=== PATIENT | male | born 1950 | race Caucasian/White ===

== ENCOUNTER 2017-04-14 13:14 | Inpatient (IN) | payer OTHER, BC ==
[~2017-04-14] VITALS: Ht 180.3 cm; Wt 155.5 kg
[2017-04-14 13:34] LABS: EOSINOPHIL (%) 1.4 % (0-5); EOSINOPHIL COUNT 0.1 K/uL (0-0.3); HEMATOCRIT 38.9 % (38.0-50.0); IMMATURE GRANULOCYTE (%) 0.6 % (0.0-0.7); LYMPHOCYTE COUNT 0.6 K/uL (1.0-2.8); MCH 30.6 PG (29.0-34.0); MCHC 33.2 G/DL (30.0-36.0); MCV 92.4 FL (86-99); MEAN PLAT.VOLUME 12.8 uM^3 (9.0-12.4); MONOCYTE (%) 8.8 % (3-12); MONOCYTE COUNT 0.5 K/uL (0-0.8); NEUTROPHIL (%) 77.4 % (45-76); PLATELET COUNT 66 K/uL (156-360); RBC DIS.WIDTH-CV 13.8 % (11.8-14.6); RBC DIS.WIDTH-SD 47.1 % (39-53); RED BLOOD COUNT 4.21 M/uL (4.00-5.50); WHITE BLOOD COUNT 5.1 K/uL (4.1-10.2)
[2017-04-14 13:42] LABS: AMYLASE 17 IU/L (1-118); CHLORIDE 105 mEq/L (99-109); POTASSIUM 3.8 mEq/L (3.7-5.4); SODIUM 138 mEq/L (136-147)
[2017-04-14 13:44] LABS: GLUCOSE 111 mg/dL (70-99)
[2017-04-14 13:45] LABS: CREATININE 0.8 mg/dL (0.6-1.3); POTASSIUM 3.8 mEq/L (3.7-5.4)
[2017-04-14 13:45] LABS: ANION GAP 12 MEQ/L (2-14)
[2017-04-14 13:47] LABS: SERUM ETHYL ALCOHOL < 10 mg/dL
[2017-04-14 13:49] LABS: UREA NITROGEN (BUN) 14 mg/dL (9-23)
[2017-04-14 13:51] LABS: LIPASE 13 U/L (1.0-51.0)
[2017-04-14 13:55] LABS: GFR ESTIMATE (CALCULATED) > 59 mL/min/
[2017-04-14 15:12] LABS: ADD MIUA? NO; BILIRUBIN NEGATIVE; BLOOD NEGATIVE; COLOR YELLOW ((YELLOW)); GLUCOSE (STRIP) NEGATIVE; KETONES 5; LEUKOCYTES NEGATIVE; NITRITE NEGATIVE; PROTEIN (STRIP) NEGATIVE; SPECIFIC GRAVITY 1.034 (1.000-1.030); UCUL ADDED? NO; UROBILINOGEN 0.2 MG/DL (0.2-1.0)
[2017-04-14 15:29] LABS: AMPHETAMINE NEGATIVE (500 ng/mL); BARBITURATES NEGATIVE (200 ng/mL); BENZODIAZEPINES NEGATIVE (150 ng/mL); COCAINE NEGATIVE (150 ng/mL); INTERNAL CONTROLS VALID? YES; METHADONE NEGATIVE (200 ng/mL); METHAMPHETAMINE NEGATIVE (500 ng/mL); OPIATES (MORPHINE) NEGATIVE (100 ng/mL); OXYCODONE NEGATIVE (100 ng/mL); PHENCYCLIDINE NEGATIVE (25 ng/mL); PROPOXYPHENE NEGATIVE (300 ng/mL); THC CANNABINOIDS NEGATIVE (50 ng/mL); TRICYCLIC ANTIDEPRESSANTS NEGATIVE (300 ng/mL)
[2017-04-14] MEDS ORDERED: ADVAIR 100/501 DISK IH (20:17)
[2017-04-14] MEDS ORDERED: AMIODARONE HCL200 MG PO (20:17)
[2017-04-14] MEDS ORDERED: CHILDREN'S ASPI81 M1 PO (20:17)
[2017-04-14] MEDS ORDERED: BENAZEPRIL HCL40 MG PO (20:17)
[2017-04-14] MEDS ORDERED: LUMIGAN 0.50 DROP/22 BOTH EYES (20:17)
[2017-04-14] MEDS ORDERED: SIMVASTATIN20 MG PO (20:17)
[2017-04-14] MEDS ORDERED: CARDURA4 MG PO (20:18)
[2017-04-14] MEDS ORDERED: WELLBUTRIN SR100 MG PO (20:18)
[2017-04-14] MEDS ORDERED: SPIRONOLACT/HC1 EACH PO (20:18)
[2017-04-14] MEDS ORDERED: AMLODIPINE BESY10 MG PO (20:18)
[2017-04-14] MEDS ORDERED: LEXAPRO10 MG PO (20:18)
[2017-04-14] MEDS ORDERED: CARVEDILOL6.25 MG PO (20:18)
[2017-04-14] MEDS ORDERED: GLUCOPHAGE1000 MG PO (20:18)
[2017-04-14] MEDS ORDERED: KLOR-CON M2020 MEQ PO (20:18)
[2017-04-14] MEDS ORDERED: COMPOUNDED EYE LEFT EYE (20:20)
[2017-04-14 21:09] LABS: TOTAL BILIRUBIN 0.8 mg/dL (0.0-1.0)
[2017-04-14 21:10] LABS: ALKALINE PHOSPHATASE 36 IU/L (3-129)
[2017-04-14 21:13] LABS: DIRECT BILIRUBIN 0.3 mg/dL (0.0-0.3)
[2017-04-14 21:14] LABS: CREATINE KINASE 89 IU/L (1-294)
[2017-04-14 21:32] LABS: TROP-I INTERPRETATION NEGATIVE; TROPONIN-I < 0.01 ng/mL (0.0-0.30)
[2017-04-14 22:20] VITALS: BP 135/70
[2017-04-14 22:30] VITALS: BP 135/70
[2017-04-15 04:43] VITALS: BP 133/70
[2017-04-15 06:22] LABS: HEMATOCRIT 39.8 % (38.0-50.0); MCH 31.3 PG (29.0-34.0); MCHC 34.2 G/DL (30.0-36.0); MCV 91.5 FL (86-99); MEAN PLAT.VOLUME 12.4 uM^3 (9.0-12.4); PLATELET COUNT 99 K/uL (156-360); RBC DIS.WIDTH-CV 13.7 % (11.8-14.6); RBC DIS.WIDTH-SD 46.5 % (39-53); RED BLOOD COUNT 4.35 M/uL (4.00-5.50); WHITE BLOOD COUNT 5.9 K/uL (4.1-10.2)
[2017-04-15 06:36] LABS: POINT-OF-CARE METER ID UU14117124
[2017-04-15 06:47] LABS: ANION GAP 10 MEQ/L (2-14); CHLORIDE 101 MEQ/L (99-109); GFR ESTIMATE (CALCULATED) > 59 mL/min/; POTASSIUM 4.1 MEQ/L (3.7-5.4); SAMPLE HEMOLYSIS CHECK 0; SAMPLE ICTERIC CHECK 0; SAMPLE LIPEMIA CHECK 0; SODIUM 136 MEQ/L (136-147); UREA NITROGEN (BUN) 13 mg/dL (9-23)
[2017-04-15 06:48] LABS: GLUCOSE 219 mg/dL (70-99)
[2017-04-15 08:05] VITALS: BP 135/81
[2017-04-15 11:51] VITALS: BP 128/68
[2017-04-15 16:00] VITALS: BP 118/62
[2017-04-15 19:58] VITALS: BP 188/67
[2017-04-15 22:04] LABS: POINT-OF-CARE METER ID UU14117124
[2017-04-15 23:17] VITALS: BP 134/75
[2017-04-16 04:46] VITALS: BP 168/95
[2017-04-16 06:14] LABS: POINT-OF-CARE METER ID UU14117124
[2017-04-16 06:24] VITALS: BP 112/56
[2017-04-16] MEDS ORDERED: HYDROCHLOROTHIA25 MG PO (08:55)
== END 2017-04-16 12:35 | disposition home or self-care (01) | DRG 54 ==
LOC: TRA 13:14 → 3EAST 20:16 → EDOF 20:16 → ENRESERV 20:21 → 3EAST 21:59
PROVIDERS: Emergency Medicine; Hospitalist
PROC: 5A09357 Assistance with Respiratory Ventilation, Less than 24 Consecutive Hours, Continuous Positive Airway Pressure (ICD-10-PCS; principal; 2017-04-15)
DX: D32.0 Benign neoplasm of cerebral meninges (principal); G93.6 Cerebral edema; E11.65 Type 2 diabetes mellitus with hyperglycemia; S20.229A Contusion of unspecified back wall of thorax, initial encounter; V43.52XA Car driver injured in collision with other type car in traffic accident, initial encounter; D69.6 Thrombocytopenia, unspecified; G47.33 Obstructive sleep apnea (adult) (pediatric); E78.5 Hyperlipidemia, unspecified; H40.9 Unspecified glaucoma; I11.0 Hypertensive heart disease with heart failure; I50.9 Heart failure, unspecified; I25.10 Atherosclerotic heart disease of native coronary artery without angina pectoris; I44.1 Atrioventricular block, second degree; I48.91 Unspecified atrial fibrillation; N40.0 Benign prostatic hyperplasia without lower urinary tract symptoms; F32.9 Major depressive disorder, single episode, unspecified; F41.9 Anxiety disorder, unspecified; E66.01 Morbid (severe) obesity due to excess calories; Z68.42 Body mass index [BMI] 45.0-49.9, adult; Z87.891 Personal history of nicotine dependence; Z79.4 Long term (current) use of insulin
CPT/HCPCS: 70450; 70553; 71260; 72125; 72129; 72132; 73502; 73552; 74177; 80047; 80048; 80076; 81003; 82150; 82550; 82948; 83690; 84484; 85025; 85027; 85049; 86850; 86900; 86901; 93005; 93306; 93970; 94660; 99281; 99285; G0480; J1100; J1644; J1815